=== PATIENT | male | born 1965 | race Caucasian/White ===

== ENCOUNTER → 2024-02-18 13:39 | Outpatient (REF) | payer BC, SELFPAY | LOC: RAD 13:39 | PROVIDERS: ATTENDING PHYSICIAN Nurse Practitioner Family; FAMILY PHYSICIAN Family Medicine | DX: J06.9 Acute upper respiratory infection, unspecified (principal) | CPT/HCPCS: 71046 ==

== ENCOUNTER → 2024-05-09 10:29 | Outpatient (REF) | payer SELFPAY | LOC: RAD 10:29 | PROVIDERS: ATTENDING PHYSICIAN Family Medicine | DX: E78.2 Mixed hyperlipidemia (principal); Z13.6 Encounter for screening for cardiovascular disorders | CPT/HCPCS: 75571 ==